=== PATIENT | female | born 1970 | race Caucasian/White ===

== ENCOUNTER 2019-05-01 11:31 | Day surgery (SDC) | payer BC ==
[2019-04-30 14:37] LABS: CLARITY,URINE CLEAR (Clear); COLOR,URINE YELLOW (Yellow); GLUCOSE, URINE NEGATIVE (Neg); KETONES,URINE NEGATIVE (Neg); LEUKOCYTE ESTERASE ,URINE NEGATIVE (Neg); NITRITES, URINE NEGATIVE (Neg); OCCULT BLOOD,URINE NEGATIVE (Neg); PROTEIN,URINE NEGATIVE (Neg); UROBILINOGEN,URINE 0.2 E.U/dL (0.2-1.0)
[2019-04-30 14:38] LABS: UA COLLECTION TYPE CLN CATCH MIDSTREAM
[2019-04-30 14:38] LABS: BASOPHILS # (AUTO) 0.1 X10'3 (0-0.2); BASOPHILS % (AUTO) 1.1 % (0-1); EOSINOPHILS # (AUTO) 0.1 X10'3 (0-0.9); EOSINOPHILS % (AUTO) 1.5 % (0-6); LYMPHOCYTES # (AUTO) 1.8 X10'3 (1.1-4.8); MEAN CORPUSCULAR HGB CONC 33.6 g/dL (33.0-36.5); MEAN CORPUSCULAR VOLUME 92.4 FL (78-98); MEAN PLATELET VOLUME 8.9 FL (7.4-10.4); MONOCYTES # (AUTO) 0.5 X10'3 (0-0.9); MONOCYTES % (AUTO) 7.7 % (2-12); NEUTROPHILS # (AUTO) 4.5 X10'3 (1.8-7.7); NEUTROPHILS % (AUTO) 63.7 % (42-75); PRE OP HEMATOCRIT 40.6 % (35.0-45.0); PRE OP HEMOGLOBIN 13.6 g/dL (12.0-16.0); PRE OP PLATELET COUNT 217 X10'3 (140-440); RED BLOOD COUNT 4.39 X10'6 (4.20-5.60); RED CELL DISTRIBUTION WIDTH 12.9 % (11.5-14.5)
[2019-04-30 14:51] LABS: ALBUMIN 3.6 G/DL (3.4-5.0); ALKALINE PHOSPHATASE 70 IU/L (46-116); BLOOD UREA NITROGEN 11 MG/DL (7-18); BUN/CREATININE RATIO 13.8 (6.6-38.0); CALCIUM 8.4 MG/DL (8.5-10.1); CHLORIDE 107 MMOL/L (99-107); PRE OP ALT 15 U/L (30-65); PRE OP ANION GAP 6 (8-16); PRE OP AST 13 U/L (10-37); PRE OP BILIRUB, TOTAL 0.3 MG/DL (0.0-1.0); PRE OP GLUCOSE 100 MG/DL (70-104); PRE OP POTASSIUM 3.9 MMOL/L (3.4-5.1); PRE OP SODIUM 140 MMOL/L (135-145); TOTAL CARBON DIOXIDE 27.2 MMOL/L (24-32); TOTAL PROTEIN 7.3 G/DL (6.4-8.2); eGFR 77 ML/MIN
[2019-04-30 14:52] LABS: PRE OP INR 0.9 INR; PRE OP PROTIME 9.9 SECONDS (9.0-12.0)
[2019-04-30 15:01] LABS: HCG SERUM QL NEGATIVE
[2019-05-01] VITALS (7 sets, daily range): BP systolic 104–151; BP diastolic 47–82
[~2019-05-01] VITALS: Ht 170.2 cm; Wt 90.3 kg
[~2019-05-01 11:31] MED LIST: BALANCE PO; CBD DROPS PO; CHOL500044 PO; COLLAGEN PO; LIFE PO; RESTORE PO; VIBE PO; ceFOXitin 2 GM ADDvantage bag 100 ML IV ONE; famotidine 20mg tablet PO ONE; ringers solution, lacted 1,000 ML IV SCH
[2019-05-01] MEDS ORDERED: ferric subsulfate solution/paste 1 APPLIC SOL.W.APPL TP ONE (11:50)
[2019-05-01] MEDS ORDERED: sevoflurane 250ml liquid IH ONE (12:04)
[2019-05-01] MEDS ORDERED: fentaNYL/PF 50MCG/1 ML 2ML syringe ONE (12:10)
[2019-05-01] MEDS ORDERED: midazolam 2 mg/2 ml injection ONE (12:11)
[2019-05-01] MEDS ORDERED: LIDOcaine 2% (20mg/ml) 5ml vial ONE (12:14)
[2019-05-01] MEDS ORDERED: propofol inj 20 ML IV ONE (12:14)
[2019-05-01] MEDS ORDERED: ondansetron/PF 4mg/2ml inj ONE (12:17)
[2019-05-01] MEDS ORDERED: dexamethasone sod phosphate 4mg/ml inj. ONE (12:17)
--- NOTE | 2019-05-01 12:42 | NUR ---
Received from OR via , accompanied by Anesthesiologist DR ALONSO and report given by Anesthesiolgist. AWAKENS TO VOICE. VITALS STABLE. DRESSING DI. EFREN PAIN. ABD SOFT.
--- NOTE | 2019-05-01 13:52 | NUR ---
AWAKE AND ORIENTED. VITALS STABLE. DRESSING DI. EFREN PAIN. HOME WITH A FRIEND AT THIS TIME.
== END 2019-05-01 13:52 | disposition home or self-care (01) ==
LOC: PAS 11:31
PROVIDERS: ATTEND Obstetrics & Gynecology
DX: R87.612 Low grade squamous intraepithelial lesion on cytologic smear of cervix (LGSIL) (principal); N87.9 Dysplasia of cervix uteri, unspecified; G43.909 Migraine, unspecified, not intractable, without status migrainosus; E66.9 Obesity, unspecified; Z68.31 Body mass index [BMI] 31.0-31.9, adult; Z98.890 Other specified postprocedural states; Z87.442 Personal history of urinary calculi; Z79.899 Other long term (current) drug therapy; Z79.01 Long term (current) use of anticoagulants
CPT/HCPCS: 36415; 57522; 80053; 81003; 82948; 84703; 85025; 85610; 85730; 86885; 86900; 86901; J0694; J1100; J2001; J2250; J2405; J2704; J3010; A4618; A7000; J7120